=== PATIENT | male | born 1990 | race Caucasian/White ===

== ENCOUNTER 2019-03-19 17:30 | Outpatient (CLI) | payer OTHER | END 2019-03-19 17:56 | disposition home or self-care (01) | LOC: LAB 17:30 | DX: D64.89 Other specified anemias (principal); J11.89 Influenza due to unidentified influenza virus with other manifestations; E78.89 Other lipoprotein metabolism disorders; E88.89 Other specified metabolic disorders; N39.0 Urinary tract infection, site not specified; J11.1 Influenza due to unidentified influenza virus with other respiratory manifestations ==